=== PATIENT | male | born 1960 | race Caucasian/White ===

== ENCOUNTER 2017-08-15 16:43 | Emergency (ER) | payer OTHER ==
[~2017-08-15] VITALS: Ht 175.3 cm; Wt 97.1 kg
[2017-08-15] MEDS ORDERED: GLUCOPHAGE500 MG PO (17:20)
[2017-08-15] MEDS ORDERED: GLIPIZIDE5 MG PO (17:20)
[2017-08-15] MEDS ORDERED: ASPIR-LOW81 MG PO (17:20)
== END 2017-08-15 18:30 | disposition home or self-care (01) ==
LOC: ED 16:43
PROC: 0W3Q0ZZ Control Bleeding in Respiratory Tract, Open Approach (ICD-10-PCS; principal; 2017-08-15)
DX: R04.0 Epistaxis (principal); R03.0 Elevated blood-pressure reading, without diagnosis of hypertension; Z79.84 Long term (current) use of oral hypoglycemic drugs; Z79.82 Long term (current) use of aspirin
CPT/HCPCS: 30901; 99282